=== PATIENT | female | born 1950 | race Caucasian/White ===

== ENCOUNTER → 2017-09-27 07:38 | Outpatient (CLI) | payer MEDICARE, SELFPAY ==
[2017-09-27 09:29] LABS: Basophils Percent Auto 0.9 % (0-2); Hematocrit 43.8 % (36-46); Hemoglobin 14.9 g/dL (12.0-16.0); Lymphocytes Percent Auto 26.3 % (25-40); Mean Corpuscular Hemoglobin 30.7 PG (26-34); Mean Corpuscular Volume 90.3 fL (80-100); Monocytes Percent Auto 7.3 % (3-14); Neutrophils Absolute Auto 3600 /uL (3000-5900); Neutrophils Percent Auto 61.5 % (50-75); Platelet Count 149 X10^3/uL (150-400); Red Blood Cell Count 4.85 X10^6/uL (4.0-5.2); Red Cell Distribution Width 13.3 % (11.6-14.8); White Blood Cell Count 5.8 X10^3/uL (4.5-11.0)
[2017-09-27 09:33] LABS: Add Manual Diff / Slide Review SLIDE REVIEW
[2017-09-27 09:40] LABS: Alanine Aminotransferase 22 IU/L (9-52); Albumin 4.2 g/dL (3.5-5.0); Albumin Globulin Ratio 1.3 (1.0-2.8); Alkaline Phosphatase 69 U/L (38-126); Aspartate Aminotransferase 30 IU/L (14-36); Blood Urea Nitrogen 16 mg/dL (7-17); Carbon Dioxide 27 mmol/L (22-32); Chloride 106 mmol/L (98-107); Cholesterol 211 mg/dL (140-199); Globulin 3.2 g/dL (1.7-4.1); Glucose 83 mg/dL (80-110); HDL Cholesterol 50 mg/dL (40-60); LDL Cholesterol Calculated 136 mg/dL (<100); Potassium 4.4 mmol/L (3.4-5.1); Sodium 143 mmol/L (137-145); Total Protein 7.4 g/dL (6.3-8.2); Triglycerides 124 mg/dL (35-150)
[2017-09-27 09:41] LABS: HEMOLYSIS 66 (0-50)
== END ==
PROVIDERS: Family Provider Physician Assistant; PCP Physician Assistant; Visit Provider Physician Assistant
DX: E78.2 Mixed hyperlipidemia (principal); D69.1 Qualitative platelet defects
CPT/HCPCS: 36415; 80053; 80061; 85025

== ENCOUNTER → 2017-10-10 10:40 | Outpatient (CLI) | payer MEDICARE, SELFPAY ==
--- NOTE | 2017-10-12 08:01 | PM.PFT.1 ---
Pulmonary Function Test Referral & Results Date Patient Seen: 10/10/17 Requesting provider: Cynthia Whitten Results: The spirometry demonstrates an FVC of 3.71 L which is 109% of predicted. The FEV1 was measured at 2.80 L which is 108% of predicted. The FEV1/FVC ratio was 75 which is 99% of predicted. No bronchodilator was administered Lung volumes show an SVC of 3.85 L which is 120% of predicted. The diffusing capacity was measured at 23.52 which is 83% of predicted. The maximum voluntary ventilation was reduced. Interpretation: This study demonstrates normal spirometry There is a slight reduction in diffusing capacity suggesting the element of some disease at the capillary alveolar level. Clinical correlation suggested
== END ==
PROVIDERS: Family Provider Physician Assistant; PCP Physician Assistant; Visit Provider Physician Assistant
DX: R06.2 Wheezing (principal)
CPT/HCPCS: 94010; 94726; 94729

== ENCOUNTER → 2017-10-31 11:40 | Outpatient (CLI) | payer MEDICARE, SELFPAY ==
--- NOTE | 2017-10-31 | DI.RAD.S_ITS ---
PROCEDURE: XR CHEST 2V INDICATIONS: WHEEZING TECHNIQUE: 2 views of the chest were acquired. COMPARISON: None. FINDINGS: Surgical changes and devices: None. Lungs and pleura: No pleural effusions or pneumothorax. Lungs are clear. Mediastinum: Mediastinal contours are normal. Heart size is normal. Bones and chest wall: No suspicious bony abnormalities. Soft tissues appear unremarkable. IMPRESSION: Normal for age, source of current symptoms is not seen. Dictated by: Sanjay Beckwith M.D. on 10/31/2017 at 12:32 Approved by: Sanjay Beckwith M.D. on 10/31/2017 at 12:32
== END ==
PROVIDERS: Family Provider Physician Assistant; PCP Physician Assistant; Visit Provider Physician Assistant
DX: R06.2 Wheezing (principal)
CPT/HCPCS: 71046

== ENCOUNTER 2018-02-27 11:03 | Emergency (ER) | payer MEDICARE, SELFPAY ==
[2018-02-27] VITALS (13 sets, daily range): BP systolic 118–142; BP diastolic 61–84; PULSE 66–82; RESP 12–18; TEMP 36.7; O2SAT 94–98; BMI 31.3
[2018-02-27 11:52] LABS: Add Manual Diff / Slide Review NO; Basophils Percent Auto 0.4 % (0-2); Hematocrit 42.8 % (36-46); Hemoglobin 14.3 g/dL (12.0-16.0); Lymphocytes Percent Auto 22.5 % (25-40); Mean Corpuscular HGB Conc 33.4 % (30-36); Mean Corpuscular Volume 89.7 fL (80-100); Monocytes Percent Auto 7.3 % (3-14); Neutrophils Absolute Auto 5400 /uL (1500-7000); Neutrophils Percent Auto 67.8 % (50-75); Platelet Count 139 X10^3/uL (150-400); Red Blood Cell Count 4.77 X10^6/uL (4.0-5.2); Red Cell Distribution Width 13.4 % (11.6-14.8); White Blood Cell Count 7.9 X10^3/uL (4.5-11.0)
--- NOTE | 2018-02-27 12:00 | DI.RAD.S_ITS ---
PROCEDURE: XR CHEST 1V INDICATIONS: dyspnea TECHNIQUE: One view of the chest was acquired. COMPARISON: [facility], CR, XR CHEST 2V, 10/31/2017, 11:24. FINDINGS: Surgical changes and devices: None. Lungs and pleura: No pleural effusions or pneumothorax. Lungs are clear. Mediastinum: Mediastinal contours appear normal. Heart size is normal. Bones and chest wall: No suspicious bony lesions. Overlying soft tissues appear unremarkable. IMPRESSION: No acute pulmonary process. Dictated by: Edwina Yost M.D. on 02/27/2018 at 12:41 Approved by: Edwina Yost M.D. on 02/27/2018 at 12:44
[2018-02-27 12:04] LABS: Alanine Aminotransferase 28 IU/L (9-52); Albumin 4.1 g/dL (3.5-5.0); Albumin Globulin Ratio 1.3 (1.0-2.8); Alkaline Phosphatase 62 U/L (38-126); Aspartate Aminotransferase 28 IU/L (14-36); Bilirubin Total 0.7 mg/dL (0.2-1.3); Blood Urea Nitrogen 20 mg/dL (7-17); Calcium 9.2 mg/dL (8.4-10.2); Carbon Dioxide 28 mmol/L (22-32); Chloride 105 mmol/L (98-107); Globulin 3.2 g/dL (1.7-4.1); Glucose 118 mg/dL (80-110); HEMOLYSIS < 15 (0-50); Potassium 4.7 mmol/L (3.4-5.1); Sodium 145 mmol/L (137-145); Total Protein 7.3 g/dL (6.3-8.2)
--- NOTE | 2018-02-27 12:05 | ED.SOB ---
HPI - SOB/Dyspnea General Chief Complaint: Upper Respiratory Symptoms Stated Complaint: TROUBLE BREATHING Time Seen by Provider: 02/27/18 11:13 Source: patient Mode of arrival: ambulatory Limitations: no limitations History of Present Illness Patient complains of cough and shortness of breath, which has worsened over the last 3 days since she developed an upper respiratory tract infection. Patient states that she has had a ?wheezy? and a sensation of fullness in her lower throat for about the last year. She states she has seen her primary care physician multiple times, as well as both ENT and pulmonology for this issue, but nobody has been able to figure out what is going on yet. Related Data Home Medications Medication Instructions Recorded Confirmed wdwkuuw-lfuvuauursimo-muvqewuk 1 tab PO PRN PRN 02/27/18 02/27/18 [Excedrin Migraine] Previous Rx's Medication Instructions Recorded albuterol sulfate 2 puff INHALATION Q6H PRN #8 gram 02/27/18 Allergies Allergy/AdvReac Type Severity Reaction Status Date / Time No Known Drug Allergies Allergy Verified 02/27/18 11:13 Review of Systems Review of Systems All systems reviewed & are unremarkable except as noted in HPI and below Constitutional Denies chills, Denies fever(s), Denies lethargy and Denies weakness Eyes Denies change in vision, Denies eye discharge, Denies irritation and Denies loss of vision ENT Ears, Nose, Mouth, and Throat: Denies change in voice, Denies neck pain and Denies sore throat Cardiovascular Denies chest pain, Denies irregular heart rhythm, Denies lightheadedness, Denies palpitations, Reports dyspnea, Denies dyspnea on exertion and Denies orthopnea Respiratory Denies cough, Reports dyspnea, Denies dyspnea on exertion and Denies wheezing Gastrointestinal Gastrointestinal: Denies abdominal pain, Denies change in bowel habits, Denies diarrhea, Denies nausea and Denies vomiting Genitourinary Denies hematuria, Denies flank pain, Denies urinary incontinence and Denies urinary urgency Musculoskeletal Denies neck pain Integumentary/Breasts Denies pruritus, Denies erythema, Denies rash and Denies wounds Neurologic Denies confusion, Denies loss of vision and Denies weakness Psychiatric Denies anxiety, Denies confusion, Denies depression, Denies homicidal ideation and Denies suicidal ideation Endocrine Denies palpitations Hematologic/Lymphatic Denies easy bruising Allergic/Immunologic Denies wheezing PFSH Medical History Healthy adult (Acute) Surgical History No pertinent past surgical history (Acute) Social History Smoking Status: Never smoker Exam Initial Vital Signs Initial Vital Signs: Vital Signs Temperature 98.1 F 02/27/18 11:03 Pulse Rate 82 02/27/18 11:03 Respiratory Rate 18 02/27/18 11:03 Blood Pressure 142/82 H 02/27/18 11:03 Pulse Oximetry 98 02/27/18 11:03 Const General: cooperative and well developed Nutritional Appearance: well nourished Orientation: alert, awake, oriented x3 and not confused HENHI Head: normocephalic and atraumatic Ears: external ears normal and TM's normal bilaterally Nose: external nose normal and No nasal discharge Face and sinus: sinuses nontender, face symmetric, no sinus tenderness and No dry mucous membranes Mouth: oral mucosae normal and moist mucous membranes Teeth and gingiva: dentition normal Eyes General: appearance normal, both eyes and all related structures Eyelids: eyelids normal Conjunctivae: conjunctivae normal Sclera: sclerae normal Pupils: PERRL EOM: EOM intact bilaterally Neck Neck: normal visual inspection, trachea midline, No lymphadenopathy, No midline deformity and No JVD Lymphatic: No lymphedema Other: No goiter or thyroid nodule palpable. Chest Chest: normal inspection of the chest Resp Effort & Inspection: normal respiratory effort, able to speak in complete sentences, no respiratory distress and no use of accessory muscles Auscultation: clear to auscultation bilaterally, no rales, no rhonchi and wheezes (Upper airway, expiratory, mild.) Cardio Rate: regular rate Rhythm: regular rhythm Heart Sounds: no click, no gallops, no murmurs and no rubs Pulses: normal peripheral pulses GI Inspection: non-distended Palpation: soft, no hepatosplenomegaly, No guarding, No pulsatile mass and No tender Auscultation: normal bowel sounds Back/Spine/Pelvis Back: No CVA tenderness Cervical Spine: cervical ROM normal and No pain with cervical ROM Thoracic/Lumbar Spine: thoracic and lumbar spine normal to inspection Skin General: no rashes or lesions noted, No jaundice and No petechiae Neuro General: alert, oriented x3, gait normal and no focal motor deficits Speech: speech normal Extrem General: full ROM, no clubbing, cyanosis or edema, no pedal edema and no calf tenderness Psych Appearance: well kempt Mental Status: mental status grossly normal Attitude: cooperative Thought Content: normal and suicidality Judgment: judgment good Course Course Narrative: Patient was treated with a racemic epinephrine nebulizer treatment, after which she reported some improvement. She did have some mild wheezes in her lower lung maria after this, so she was also given a DuoNeb. She was worked up with a chest x-ray, which was negative, as well as a CT scan of the neck, which did show some thyroid nodules or potential cyst. An ultrasound was recommended to further evaluate this, so ultrasound was performed in the emergency department. This did confirm thyroid nodules. I spoke with the patient regarding this, and the need for follow-up. It is possible that these nodules are the cause for the patient's feeling of fullness in her lower neck, and I have discussed with the patient that she may need to have a biopsy done. There is no evidence of impending airway compromise, certainly not acutely, as this has been going on for about a year. However, it is important that the patient discusses this finding with all of her physicians so that they can decide how best to proceed. Orders Ordered: Discontinued Medications Albuterol/Ipratropium (Duoneb) 3 ml INH NOW ONE Stop: 02/27/18 12:54 Last Admin: 02/27/18 12:54 Dose: 3 ml Epinephrine (Epinephrine Racemic) 0.5 ml INH NOW ONE Stop: 02/27/18 12:01 Last Admin: 02/27/18 12:17 Dose: 0.5 ml Dexamethasone 20 mg/ Sodium (Chloride) 52 mls @ 208 mls/hr IV NOW ONE Stop: 02/27/18 12:01 Last Infusion: 02/27/18 12:44 Dose: 0 mls/hr Admin: 02/27/18 12:21 Dose: 208 mls/hr Vital Signs - 8 hr 02/27/18 11:03 02/27/18 11:10 02/27/18 11:30 Temperature 98.1 F Pulse Rate 82 73 82 Respiratory Rate 18 16 Blood Pressure 142/82 H Blood Pressure [Left Arm] 123/75 123/75 Pulse Oximetry 98 96 96 MDM - SOB/Dyspnea Medical Records Attestation: I reviewed the patient's medical records. Lab Data Attestation: I reviewed the patient's lab results. Result diagrams: 02/27/18 11:36 02/27/18 11:36 Lab Results 02/27/18 02/27/18 02/27/18 Range/Units 11:36 11:36 11:36 WBC 7.9 (4.5-11.0) X10^3/uL RBC 4.77 (4.0-5.2) X10^6/uL Hgb 14.3 (12.0-16.0) g/dL Hct 42.8 (36-46) % MCV 89.7 (80-100) fL MCH 30.0 (26-34) PG MCHC 33.4 (30-36) % RDW 13.4 (11.6-14.8) % Plt Count 139 L (150-400) X10^3/uL Neut % (Auto) 67.8 (50-75) % Lymph % (Auto) 22.5 L (25-40) % Saunders % (Auto) 7.3 (3-14) % Eos % (Auto) 2.0 (2-4) % Baso % (Auto) 0.4 (0-2) % Neut # (Auto) 5400 (4635-8508) /uL Sodium 145 (137-145) mmol/L Potassium 4.7 (3.4-5.1) mmol/L Chloride 105 (98-107) mmol/L Carbon Dioxide 28 (22-32) mmol/L BUN 20 H (7-17) mg/dL Creatinine 1.00 (0.52-1.04) mg/dL Estimated GFR 55.0 L (>60) mL/min BUN/Creatinine Ratio 20.0 (6-22) Glucose 118 H (80-110) mg/dL Calcium 9.2 (8.4-10.2) mg/dL Total Bilirubin 0.7 (0.2-1.3) mg/dL AST 28 (14-36) IU/L ALT 28 (9-52) IU/L Alkaline Phosphatase 62 (38-126) U/L Total Protein 7.3 (6.3-8.2) g/dL Albumin 4.1 (3.5-5.0) g/dL Globulin 3.2 (1.7-4.1) g/dL Albumin/Globulin Ratio 1.3 (1.0-2.8) TSH 2.90 (0.47-4.68) uIU/mL Free T4 1.21 (0.78-2.19) ng/dL Free T4 Index 2.78 (1.65-3.89) Thyroxine (T4) 9.17 (5.5-11.0) ug/dL Free T3 3.70 (2.77-5.27) pg/mL T3 Uptake 30.3 (23.5-40.5) % Imaging Data Chest x-ray: Attestation: I personally reviewed and interpreted this imaging study as follows: My impression: Negative Radiologist's impression: PROCEDURE: XR CHEST 1V INDICATIONS: dyspnea TECHNIQUE: One view of the chest was acquired[facility]. FINDINGS: Surgical changes and devices: None. Lungs and pleura: No pleural effusions or pneumothorax. Lungs are clear. Mediastinum: Mediastinal contours appear normal. Heart size is normal. Bones and chest wall: No suspicious bony lesions. Overlying soft tissues appear unremarkable. IMPRESSION: No acute pulmonary process. Dictated by: Edwina Yost M.D. on 02/27/2018 at 12:41 Approved by: Edwina Yost M.D. on 02/27/2018 at 12:44 CT scan neck: Radiologist's impression: [place] [id number] CT Scan Report Signed Patient: Safia Charles MR#: [id number] : 1950 Acct:[id number] Age/Sex: 67 / F Date of Service: 02/27/18 Loc: ED Accession Number: [id number] Procedure: CT soft tissue neck w con Ordering Provider: Nga Mcdonald MD PROCEDURE: CT SOFT TISSUE NECK W CON INDICATIONS: lower throat fullness/swelling, dyspnea TECHNIQUE: After the administration of intravenous contrast, 3.0 mm axial sections acquired from the sella to the aortic arch. Additional oblique axial 3.0 mm sections acquired through the pharynx. 3 mm thick coronal and sagittal reformats were generated. For radiation dose reduction, the following was used: automated exposure control. COMPARISON: None. FINDINGS: Image quality: Excellent. Lymph nodes: No enlarged lymph nodes seen throughout the neck. Vessels: Visualized vasculature appears patent. Neck spaces: The oropharynx, nasopharynx, and pharynx demonstrate no mucosal lesions. The vocal cords, false vocal cords, pyriform sinuses, epiglottis, vallecula, and tongue base all appear normal. Extramucosal spaces appear unremarkable. Glands: The parotid and submandibular glands appear normal. Thyroid gland demonstrates heterogeneous appearance with possible subcentimeter low attenuation nodule in the left and right lobes although this could be better assessed with dedicated ultrasound as clinically warranted. Miscellaneous: Visualized brain and orbits appear normal. Lung apices appear clear. Superficial soft tissues appear normal. Bones: No suspicious bony lesions. Straightening of the normal cervical lordosis and multilevel mid to lower cervical disc degeneration grade 1 anterolisthesis of C4 on C5. Mild bilateral maxillary sinus mucosal thickening IMPRESSION: No pathologically enlarged lymphadenopathy or mass lesion identified. Airway appears patent. No abscess seen. Mild bilateral maxillary sinus disease. Heterogeneous appearance of the thyroid, suspicious for bilateral cysts and/or nodules. Recommend further evaluation with dedicated thyroid ultrasound. Dictated by: Jh Roy M.D. on 02/27/2018 at 13:48 Approved by: Jh Roy M.D. on 02/27/2018 at 13:55 Thyroid ultrasound: Radiologist's impression: PROCEDURE: US THYROID INDICATIONS: NODULES ON ER CT TECHNIQUE: Real-time scanning was performed of the thyroid gland, with image documentation. COMPARISON: None. FINDINGS: Right: Thyroid lobe measures 3.8 x 1.6 cm, and is homogeneous in echotexture. Left: Thyroid lobe measures 3.6 x 1.5 x 1.4 cm, and is homogenous in echotexture. Isthmus: 1.7 mm thick. Nodule number: 1 Size: 1.5 x 0.8 x 1.1 cm. Composition: Solid Echogenicity: Isoechoic Shape: wider than tall. Margins: Smooth Echogenic foci: None Total points: 3 ACR TI-RADS category: 3 Nodule number: 2 Location: Right mid Size: 0.8 x 0.5 x 0.7 cm. Composition: Solid Echogenicity: Isoechoic Shape: wider than tall. Margins: Smooth Echogenic foci: None Total points: 3 ACR TI-RADS category: 3 Nodule number: 3 Location: Right mid Size: 0.6 x 0.6 x 0.9 cm. Composition: Solid Echogenicity: Hypoechoic Shape: wider than tall. Margins: Smooth Echogenic foci: None Total points: 4 ACR TI-RADS category: 4 Nodule number: 4 Location: Right inferior Size: 1.1 x 0.6 x 0.9 cm. Composition: Solid Echogenicity: Hypoechoic Shape: wider than tall. Margins: Smooth Echogenic foci: None Total points: 4 ACR TI-RADS category: 4 IMPRESSION: 1. Multiple thyroid nodules as above. Recommend interval follow up as below. ACR TI-RADS definitions and recommendations: TI-RADS 1 (benign): 0 points. FNA not needed. TI-RADS 2 (not suspicious): 2 points. FNA not needed. TI-RADS 3 (mildly suspicious): 3 points. * FNA if 2.5 cm or larger, follow up if 1.5 cm or larger (at 1, 3, and 5 years). If smaller than 1.5 cm, no additional followup is recommended. TI-RADS 4 (moderately suspicious): 4-6 points. * FNA if 1.5 cm or larger, follow up if 1 cm or larger (at 1, 2, 3, and 5 years). If smaller than 1.0 cm, no additional followup is recommended. TI-RADS 5 (highly suspicious): 7 points or more. * FNA if 1 cm or larger, follow up if 0.5 cm or larger (every year for 5 years). Dictated by: Edwina Yost M.D. on 02/27/2018 at 16:17 Approved by: Edwina Yost M.D. on 02/27/2018 at 16:22 Discharge Plan Departure Patient Disposition: Home Clinical Impression: Dyspnea, Upper respiratory infection, Multiple thyroid nodules Discharge Date/Time: 02/27/18 16:44 Interventions: ED Discharge Assessment Last Done: 02/27/18 16:13 Instructions: DI for Viral Upper Respiratory Infection -- Adult, DI for Shortness of Breath, DI for Thyroid Nodule Activity Restrictions/Additional Instructions: Your CT scan showed possible cysts or growths on your thyroid, and so an ultrasound was done. This does show multiple small growths on the thyroid which could be contributing to your sense of irritation and mass effect in your throat. You will need to talk to your doctor about how to go about dealing with this from here. It may be helpful to have a biopsy done, but either your ENT specialist or your primary doctor would be better able to make this decision. Your thyroid labs are normal. The rest of your workup was unremarkable. You may use the inhaler, as needed. Prescriptions: New albuterol sulfate 90 mcg/actuation HFA aerosol inhaler 2 puff INHALATION Q6H PRN (Reason: shortness of breath or wheezing) Qty: 8 RF: 0 No Action uchfnhf-ipgfwnpfwwwkz-qwzyirhu [Excedrin Migraine] 250-250-65 mg tablet 1 tab PO PRN PRN (Reason: Migraine Headache) RF: 0 Referrals: Cynthia Whitten PA-C [Primary Care Provider] -
[2018-02-27] MEDS: RACEPINEPHRINE 0.5 ML NEB INH (12:17)
[2018-02-27] MEDS: DEXAMETHASONE 20 MG in SODIUM CHLORIDE 0.9% 50 ML 208 ML IV (12:21)
--- NOTE | 2018-02-27 12:27 | PC.NURSE ---
post breathing treatment, breathing easier.
[2018-02-27] MEDS: ALBUTEROL/IPRATROPIUM 3 ML AMPUL INH (12:54)
--- NOTE | 2018-02-27 13:18 | DI.CT.S_ITS ---
PROCEDURE: CT SOFT TISSUE NECK W CON INDICATIONS: lower throat fullness/swelling, dyspnea TECHNIQUE: After the administration of intravenous contrast, 3.0 mm axial sections acquired from the sella to the aortic arch. Additional oblique axial 3.0 mm sections acquired through the pharynx. 3 mm thick coronal and sagittal reformats were generated. For radiation dose reduction, the following was used: automated exposure control. COMPARISON: None. FINDINGS: Image quality: Excellent. Lymph nodes: No enlarged lymph nodes seen throughout the neck. Vessels: Visualized vasculature appears patent. Neck spaces: The oropharynx, nasopharynx, and pharynx demonstrate no mucosal lesions. The vocal cords, false vocal cords, pyriform sinuses, epiglottis, vallecula, and tongue base all appear normal. Extramucosal spaces appear unremarkable. Glands: The parotid and submandibular glands appear normal. Thyroid gland demonstrates heterogeneous appearance with possible subcentimeter low attenuation nodule in the left and right lobes although this could be better assessed with dedicated ultrasound as clinically warranted. Miscellaneous: Visualized brain and orbits appear normal. Lung apices appear clear. Superficial soft tissues appear normal. Bones: No suspicious bony lesions. Straightening of the normal cervical lordosis and multilevel mid to lower cervical disc degeneration grade 1 anterolisthesis of C4 on C5. Mild bilateral maxillary sinus mucosal thickening IMPRESSION: No pathologically enlarged lymphadenopathy or mass lesion identified. Airway appears patent. No abscess seen. Mild bilateral maxillary sinus disease. Heterogeneous appearance of the thyroid, suspicious for bilateral cysts and/or nodules. Recommend further evaluation with dedicated thyroid ultrasound. Dictated by: Jh Roy M.D. on 02/27/2018 at 13:48 Approved by: Jh Roy M.D. on 02/27/2018 at 13:55
--- NOTE | 2018-02-27 14:10 | DI.US.S_ITS ---
PROCEDURE: US THYROID INDICATIONS: NODULES ON ER CT TECHNIQUE: Real-time scanning was performed of the thyroid gland, with image documentation. COMPARISON: None. FINDINGS: Right: Thyroid lobe measures 3.8 x 1.6 cm, and is homogeneous in echotexture. Left: Thyroid lobe measures 3.6 x 1.5 x 1.4 cm, and is homogenous in echotexture. Isthmus: 1.7 mm thick. Nodule number: 1 Size: 1.5 x 0.8 x 1.1 cm. Composition: Solid Echogenicity: Isoechoic Shape: wider than tall. Margins: Smooth Echogenic foci: None Total points: 3 ACR TI-RADS category: 3 Nodule number: 2 Location: Right mid Size: 0.8 x 0.5 x 0.7 cm. Composition: Solid Echogenicity: Isoechoic Shape: wider than tall. Margins: Smooth Echogenic foci: None Total points: 3 ACR TI-RADS category: 3 Nodule number: 3 Location: Right mid Size: 0.6 x 0.6 x 0.9 cm. Composition: Solid Echogenicity: Hypoechoic Shape: wider than tall. Margins: Smooth Echogenic foci: None Total points: 4 ACR TI-RADS category: 4 Nodule number: 4 Location: Right inferior Size: 1.1 x 0.6 x 0.9 cm. Composition: Solid Echogenicity: Hypoechoic Shape: wider than tall. Margins: Smooth Echogenic foci: None Total points: 4 ACR TI-RADS category: 4 IMPRESSION: 1. Multiple thyroid nodules as above. Recommend interval follow up as below. ACR TI-RADS definitions and recommendations: TI-RADS 1 (benign): 0 points. FNA not needed. TI-RADS 2 (not suspicious): 2 points. FNA not needed. TI-RADS 3 (mildly suspicious): 3 points. * FNA if 2.5 cm or larger, follow up if 1.5 cm or larger (at 1, 3, and 5 years). If smaller than 1.5 cm, no additional followup is recommended. TI-RADS 4 (moderately suspicious): 4-6 points. * FNA if 1.5 cm or larger, follow up if 1 cm or larger (at 1, 2, 3, and 5 years). If smaller than 1.0 cm, no additional followup is recommended. TI-RADS 5 (highly suspicious): 7 points or more. * FNA if 1 cm or larger, follow up if 0.5 cm or larger (every year for 5 years). Dictated by: Edwina Yost M.D. on 02/27/2018 at 16:17 Approved by: Edwina Yost M.D. on 02/27/2018 at 16:22
[2018-02-27 14:55] LABS: Free T4, Direct Thyroxine 1.21 ng/dL (0.78-2.19)
[2018-02-27 15:18] LABS: T4 Total Thyroxine 9.17 ug/dL (5.5-11.0); T7 (Free Thyroxine Index) 2.78 (1.65-3.89); Triiodothryronine T3 Uptake 30.3 % (23.5-40.5)
== END 2018-02-27 16:44 | disposition home or self-care (01) ==
PROVIDERS: Emergency Provider Emergency Medicine; PCP Physician Assistant
DX: J06.9 Acute upper respiratory infection, unspecified (principal); E04.2 Nontoxic multinodular goiter; R06.00 Dyspnea, unspecified
CPT/HCPCS: 36591; 70491; 71045; 76536; 80053; 84436; 84439; 84443; 84479; 84481; 85025; 94640; 96365; 99284; 99285; J1100

== ENCOUNTER → 2019-03-24 15:57 | Outpatient (ROUT) | payer MEDICARE, SELFPAY | PROVIDERS: PCP Physician Assistant; Visit Provider Student in an Organized Health Care Education/Training Program | DX: R35.0 Frequency of micturition (principal) | CPT/HCPCS: 87077; 87086; 87186 ==

== ENCOUNTER → 2019-04-09 15:04 | Outpatient (CLI) | payer MEDICARE, SELFPAY ==
--- NOTE | 2019-04-09 | DI.MG.S_ITS ---
BILATERAL DIGITAL SCREENING MAMMOGRAM 3D/2D WITH CAD: 04/09/2019 CLINICAL: Routine screening. Family history of breast cancer. Comparison is made to exams dated: 06/25/2017 mammogram, 06/23/2016 mammogram, and 04/23/2015 mammogram - [facility]. The tissue of both breasts is heterogeneously dense. This may lower the sensitivity of mammography. Current study was also evaluated with a Computer Aided Detection (CAD) system. There is a possible developing asymmetry in the right breast middle depth lateral region seen on the craniocaudal view only. This is more prominent. No other significant masses, calcifications, or other findings are seen in either breast. IMPRESSION: INCOMPLETE: NEEDS ADDITIONAL IMAGING EVALUATION The possible developing asymmetry in the right breast is indeterminate. Additional views with possible ultrasound are recommended. This exam was interpreted at Station ID: [id number]. NOTE: For mammograms, a report in lay terms will be sent to the patient. Approximately 15% of breast malignancies will not be visualized mammographically. In the management of a palpable breast mass, a negative mammogram must not discourage biopsy of a clinically suspicious lesion. Electronically Signed By: Carol hanson/:04/09/2019 19:54:27 letter sent: Additional Imaging Needed ACR BI-RADS Category 0: Incomplete [id number]
== END ==
PROVIDERS: PCP Student in an Organized Health Care Education/Training Program; Visit Provider Physician Assistant
DX: Z12.31 Encounter for screening mammogram for malignant neoplasm of breast (principal); Z80.3 Family history of malignant neoplasm of breast; M85.851 Other specified disorders of bone density and structure, right thigh; Z78.0 Asymptomatic menopausal state
CPT/HCPCS: 77063; 77067; 77080

== ENCOUNTER → 2019-04-23 14:37 | Outpatient (CLI) | payer MEDICARE, SELFPAY ==
--- NOTE | 2019-04-23 | DI.MG.S_ITS ---
UNILATERAL RIGHT DIGITAL DIAGNOSTIC MAMMOGRAM 3D/2D WITH ADDITIONAL VIEWS: 04/23/2019 CLINICAL: Additional evaluation requested from prior study. Comparison is made to exams dated: 04/09/2019 mammogram, 06/25/2017 mammogram, and 06/23/2016 mammogram - [facility]. The tissue of right breast is heterogeneously dense. This may lower the sensitivity of mammography. There are linear calcifications in the right breast at 1 o'clock posterior depth. There is architectural distortion associated with the calcifications. The asymmetry in the right breast middle depth lateral region seen on the screening craniocaudal view dated 04/09/19 is not seen in additional views. No other significant masses or calcifications are seen in the breast. IMPRESSION: INCOMPLETE: NEEDS ADDITIONAL IMAGING EVALUATION The architectural distortion in the right breast at 1 o'clock posterior depth are indeterminate. A targeted ultrasound of the right breast is recommended and will be performed immediately following this exam. This exam was interpreted at Station ID: [id number]. NOTE: For mammograms, a report in lay terms will be sent to the patient. Approximately 15% of breast malignancies will not be visualized mammographically. In the management of a palpable breast mass, a negative mammogram must not discourage biopsy of a clinically suspicious lesion. Electronically Signed By: Seema Solano M.D. lk/:04/23/2019 15:25:01 ACR BI-RADS Category 0: Incomplete [id number]
--- NOTE | 2019-04-23 | DI.US.S_ITS ---
ULTRASOUND OF RIGHT BREAST: 04/23/2019 CLINICAL: Patient returns today to evaluate an architectural distortion in the right breast. Comparison is made to exams dated: 04/23/2019 mammogram, 04/09/2019 mammogram, 06/25/2017 mammogram, 06/23/2016 mammogram, 04/23/2015 mammogram, and 04/20/2015 mammogram - [facility]. Real-time ultrasound of the right breast was performed on the areas of interest. Sousa scale images of the real-time examination were reviewed. IMPRESSION: SUSPICIOUS OF MALIGNANCY There is no sonographic abnormality seen in the right breast to correspond with the architectural distortion and calcifications in the upper inner quadrant. Stereotactic biopsy from a superior approach is recommended. This exam was interpreted at Station ID: [id number]. SUMMARY: This was discussed with the patient by the radiologist at the time of the exam. Electronically Signed By: Seema gonzalez/:04/23/2019 16:15:29 letter sent: Biopsy Required Ultrasound BI-RADS: 4b Moderate suspicion of malignancy
== END ==
PROVIDERS: PCP Student in an Organized Health Care Education/Training Program; Referring Provider Student in an Organized Health Care Education/Training Program; Visit Provider Student in an Organized Health Care Education/Training Program
DX: R92.8 Other abnormal and inconclusive findings on diagnostic imaging of breast (principal); R92.1 Mammographic calcification found on diagnostic imaging of breast; N64.89 Other specified disorders of breast
CPT/HCPCS: 76642; 77065; G0279

== ENCOUNTER → 2019-08-31 16:02 | Outpatient (CLI) | payer MEDICARE, SELFPAY ==
[2019-09-01 08:57] LABS: COVID19 Sendout NOT DETECTED (Not Detect)
== END ==
PROVIDERS: PCP Student in an Organized Health Care Education/Training Program; Visit Provider Physician Assistant
DX: Z01.812 Encounter for preprocedural laboratory examination (principal)
CPT/HCPCS: 87635

== ENCOUNTER 2019-09-03 08:19 | Day surgery (SDC) | payer MEDICARE, SELFPAY ==
[2019-09-03] VITALS (7 sets, daily range): BP systolic 109–149; BP diastolic 78–91; PULSE 68–80; RESP 16–18; TEMP 35.6–36.6; O2SAT 92–98; BMI 30.4
--- NOTE | 2019-09-03 08:53 | PM.HP.1 ---
History of Present Illness History of Present Illness Date Patient Seen: 09/03/19 Time Patient Seen: 08:53 Chief complaint: [id number] COLONOSCOPY Narrative: Positive Cologuard test Patient History Medical History (Updated 09/03/19 @ 08:54 by Vaishali Bailey MD) Healthy adult (Acute) Surgical History (Updated 03/03/18 @ 14:31 by Nga Mcdonald MD) No pertinent past surgical history (Acute) Family & Social History Tobacco & Substance use: Smoking Status Never smoker Substance Use Type does not use Meds Home Medications and Allergies Home Medications Medication Instructions Recorded Confirmed Type albuterol sulfate 2 puff INHALATION Q6H PRN #8 gram 02/27/18 Rx xcqqcha-bxdcnawdjedrw-qinibtox 1 tab PO PRN PRN 02/27/18 02/27/18 History [Excedrin Migraine] Allergies Allergy/AdvReac Type Severity Reaction Status Date / Time No Known Drug Allergies Allergy Verified 08/31/19 15:58 Exam Narrative Exam Narrative: Oropharynx free of lesions Chest clear to auscultation and percussion Cardiac exam reveals no S3 or murmur hot Assessment & Plan Assessment & Plan narrative: Positive Cologuard test need for colonoscopy. Risks, benefits, alternatives have been explained.
--- NOTE | 2019-09-03 08:55 | PM.OP.ENDO ---
Operative Date/Time/Diagnoses Date of procedure: 09/03/19 Time of procedure: 08:55 Pre-op diagnosis: See indication and findings Procedure & Clinicians Study performed: Colonoscopy Indications: Cologuard positive Surgeon: Vaishali Bailey Procedure Notes Procedure in detail: After informed consent was obtained the patient was placed in left lateral decubitus position. The video colonoscope was introduced the rectum slowly advanced to cecum. Colon was extremely tortuous and very long. Preparation was good. On slow withdrawal mucosa was carefully examined. The scope was removed. The patient tolerated procedure well. Blood loss none Complications none Sedation Total sedation time 37 minutes Versed 6 mg fentanyl 100 record g IV titration Findings 1. completely normal colonoscopy to cecum including retroflexed view in the rectum and in the right colon Patient will not need follow-up for 10 years with colonoscopy or better yet a virtual colonoscopy given the difficulty of performing the procedure.
[2019-09-03] MEDS: SODIUM CHLORIDE 0.9% 1,000 ML 50 ML IV (08:57)
[2019-09-03] MEDS: fentaNYL 250 MCG/5 ML INJ IV (09:30)
[2019-09-03] MEDS: MIDAZOLAM 5 MG/5 ML VIAL IV (09:30)
--- NOTE | 2019-09-03 10:48 | SUR.PHASEII ---
pt had juice and stated she felt fine. Pt d/miguel with sister. Pt wheeled out to car.
== END 2019-09-03 10:49 | disposition home or self-care (01) ==
PROVIDERS: PCP Student in an Organized Health Care Education/Training Program; Referring Provider Internal Medicine Gastroenterology; Visit Provider Internal Medicine Gastroenterology
PROC: 0DJD8ZZ Inspection of Lower Intestinal Tract, Via Natural or Artificial Opening Endoscopic (ICD-10-PCS; CPT 45378; principal; 2019-09-03 09:30)
DX: R19.5 Other fecal abnormalities (principal)
CPT/HCPCS: 45378; J2250; J3010

== ENCOUNTER → 2020-03-29 11:30 | Outpatient (CLI) | payer MEDICARE, SELFPAY ==
--- NOTE | 2020-03-29 | DI.RAD.S_ITS ---
PROCEDURE: XR SHOULDER LT MIN 2V INDICATIONS: LEFT SHOULDER PAIN TECHNIQUE: 3 views of the shoulder were acquired. COMPARISON: None. FINDINGS: Bones: No fractures or dislocations. No suspicious bony lesions. Visualized ribs appear intact. Soft tissues: No suspicious soft tissue calcifications. IMPRESSION: Normal left shoulder Dictated by: Jaime Fox M.D. on 03/29/2020 at 12:42 Approved by: Jaime Fox M.D. on 03/29/2020 at 12:42
== END ==
PROVIDERS: PCP Student in an Organized Health Care Education/Training Program; Referring Provider Student in an Organized Health Care Education/Training Program; Visit Provider Student in an Organized Health Care Education/Training Program
DX: M25.512 Pain in left shoulder (principal)
CPT/HCPCS: 73030

== ENCOUNTER → 2020-04-14 11:32 | Outpatient (CLI) | payer MEDICARE, SELFPAY ==
--- NOTE | 2020-04-14 11:34 | DI.MG.S_ITS ---
BILATERAL DIGITAL SCREENING MAMMOGRAM 3D/2D WITH CAD: 04/14/2020 CLINICAL: Routine screening. Family history of breast cancer. Comparison is made to exams dated: 04/23/2019 mammogram, 04/09/2019 mammogram, and 06/25/2017 mammogram - [facility]. The tissue of both breasts is heterogeneously dense. This may lower the sensitivity of mammography. Current study was also evaluated with a Computer Aided Detection (CAD) system. There are benign calcifications in both breasts. There also is a biopsy clip in both breasts. No significant masses, calcifications, or other findings are seen in either breast. There has been no significant interval change. IMPRESSION: BENIGN There is no mammographic evidence of malignancy. A 1 year screening mammogram is recommended. This exam was interpreted at Station ID: [id number]. NOTE: For mammograms, a report in lay terms will be sent to the patient. Approximately 15% of breast malignancies will not be visualized mammographically. In the management of a palpable breast mass, a negative mammogram must not discourage biopsy of a clinically suspicious lesion. Electronically Signed By: Darci boggs/carolyn:04/14/2020 12:20:14 letter sent: Normal Exam ACR BI-RADS Category 2: Benign Finding(s) 3342F
== END ==
PROVIDERS: PCP Student in an Organized Health Care Education/Training Program; Referring Provider Student in an Organized Health Care Education/Training Program; Visit Provider Student in an Organized Health Care Education/Training Program
DX: Z12.31 Encounter for screening mammogram for malignant neoplasm of breast (principal); Z80.3 Family history of malignant neoplasm of breast
CPT/HCPCS: 77063; 77067

== ENCOUNTER → 2021-04-19 10:11 | Outpatient (CLI) | payer OTHER, SELFPAY ==
--- NOTE | 2021-04-19 | DI.MG.S_ITS ---
BILATERAL DIGITAL SCREENING MAMMOGRAM 3D/2D WITH CAD: 04/19/2021 CLINICAL: Routine screening. Family history of breast cancer. Comparison is made to exams dated: 04/14/2020 mammogram, 04/23/2019 mammogram, 04/09/2019 mammogram, and 06/25/2017 mammogram - [facility]. The tissue of both breasts is heterogeneously dense. This may lower the sensitivity of mammography. Current study was also evaluated with a Computer Aided Detection (CAD) system. There are benign calcifications in both breasts. There also is a biopsy clip in both breasts. No significant masses, calcifications, or other findings are seen in either breast. There has been no significant interval change. IMPRESSION: BENIGN There is no mammographic evidence of malignancy. A 1 year screening mammogram is recommended. This exam was interpreted at Station ID: [id number]. NOTE: For mammograms, a report in lay terms will be sent to the patient. Approximately 15% of breast malignancies will not be visualized mammographically. In the management of a palpable breast mass, a negative mammogram must not discourage biopsy of a clinically suspicious lesion. Electronically Signed By: Feliz guerra/carolyn:04/19/2021 11:18:16 letter sent: Normal Exam ACR BI-RADS Category 2: Benign Finding(s) 3342F
== END ==
PROVIDERS: PCP Student in an Organized Health Care Education/Training Program; Referring Provider Student in an Organized Health Care Education/Training Program; Visit Provider Student in an Organized Health Care Education/Training Program
DX: Z12.31 Encounter for screening mammogram for malignant neoplasm of breast (principal); Z80.3 Family history of malignant neoplasm of breast
CPT/HCPCS: 77063; 77067

== ENCOUNTER → 2022-05-17 09:04 | Outpatient (CLI) | payer OTHER, SELFPAY ==
--- NOTE | 2022-05-17 | DI.MG.S_ITS ---
BILATERAL DIGITAL SCREENING MAMMOGRAM 3D/2D WITH CAD: 05/17/2022 CLINICAL: Routine screening. Family history of breast cancer. Comparison is made to exams dated: 04/19/2021 mammogram, 04/14/2020 mammogram, 04/09/2019 mammogram, and 06/25/2017 mammogram - [facility]. Both breasts are heterogeneously dense, which may obscure small masses (category c / 51-75% glandular tissue). Current study was also evaluated with a Computer Aided Detection (CAD) system. There are benign calcifications in both breasts. There also is a biopsy clip in both breasts. No significant masses, calcifications, or other findings are seen in either breast. There has been no significant interval change. IMPRESSION: BENIGN There is no mammographic evidence of malignancy. A 1 year screening mammogram is recommended. Based on the Tyrer Cuzick model (a risk assessment model) the patient's lifetime risk is 12.2% and her 10 year risk is 10.0%. According to the ACR, ACS, and NCCN guidelines, an annual breast MRI exam along with mammogram is recommended if the patient's lifetime risk is 20% or greater. This exam was interpreted at Station ID: [id number]. NOTE: For mammograms, a report in lay terms will be sent to the patient. Approximately 15% of breast malignancies will not be visualized mammographically. In the management of a palpable breast mass, a negative mammogram must not discourage biopsy of a clinically suspicious lesion. Electronically Signed By: Dante arnold/carolyn:05/17/2022 12:05:29 letter sent: Normal Exam ACR BI-RADS Category 2: Benign Finding(s) 3342F
== END ==
PROVIDERS: PCP Student in an Organized Health Care Education/Training Program; Referring Provider Student in an Organized Health Care Education/Training Program; Visit Provider Student in an Organized Health Care Education/Training Program
DX: Z12.31 Encounter for screening mammogram for malignant neoplasm of breast (principal); Z80.3 Family history of malignant neoplasm of breast
CPT/HCPCS: 77063; 77067

== ENCOUNTER → 2022-06-12 13:42 | Outpatient (CLI) | payer OTHER, SELFPAY ==
--- NOTE | 2022-06-12 13:44 | DI.RAD.S_ITS ---
PROCEDURE: XR HIP W PEL IF DONE MIRIAM MIN 4V INDICATIONS: bilateral hip pain TECHNIQUE: AP pelvis with lateral view(s) of the bilateral hip(s). COMPARISON: None. FINDINGS: Bones: No fractures or dislocations. Pelvic ring appears intact. No suspicious bony lesions. Mild bilateral hip degenerative change. Soft tissues: The visualized bowel gas pattern is normal. No suspicious soft tissue calcifications. IMPRESSION: Mild bilateral hip degenerative change. No evidence acute bony abnormality of the pelvis and bilateral hips. If clinical suspicion and/or symptoms persist, further assessment with repeat plain films, or advanced imaging (e.g., CT, MRI, or bone scan) may be helpful for further assessment. Dictated by: Jamie Phillips M.D. on 06/12/2022 at 16:19 Approved by: Jamie Phillips M.D. on 06/12/2022 at 16:20
== END ==
PROVIDERS: PCP Student in an Organized Health Care Education/Training Program; Referring Provider Student in an Organized Health Care Education/Training Program; Visit Provider Student in an Organized Health Care Education/Training Program
DX: M25.551 Pain in right hip (principal); M25.552 Pain in left hip
CPT/HCPCS: 73522